=== PATIENT | female | born 1990 | race African-American/Black ===

== ENCOUNTER 2025-10-20 07:45 | Emergency (ER) | payer OTHER ==
[~2025-10-20] VITALS: Ht 170.2 cm; Wt 70.0 kg
[2025-10-20 07:48] VITALS: O2SAT 99
[2025-10-20] MEDS: ALBUTEROL (0.083%) 2.5MG/3ML NEB HHN SCH (09:09)
[2025-10-20 09:10] VITALS: PULSE 80; RESP 18
[2025-10-20] MEDS: PREDNISONE 20MG TABLET PO ONE (09:34)
[2025-10-20] MEDS ORDERED: ALBU18HF2 IH (09:44)
[2025-10-20] MEDS ORDERED: P20 MT (09:44)
[2025-10-20 09:57] VITALS: BP 114/74; PULSE 92; RESP 20; TEMP 36.7; O2SAT 100
== END 2025-10-20 09:58 | disposition home or self-care (01) ==
LOC: ER 07:45
DX: J02.9 Acute pharyngitis, unspecified (principal); J20.9 Acute bronchitis, unspecified; Z79.52 Long term (current) use of systemic steroids; Z88.2 Allergy status to sulfonamides
CPT/HCPCS: 81025; 87430; 87070; 71045; 94640; 99284; J7512; Z7610; 94070